=== PATIENT | female | born 1980 | race Asian ===

== ENCOUNTER → 2019-09-03 | Outpatient (CLI) | payer OTHER ==
[2019-09-04 06:17] LABS: RUBEOLA (MEASLES) IGG >300.0 AU/mL (Immune >16.4)
== END | disposition home or self-care (01) ==
LOC: MSR 10:38
PROVIDERS: ATTEND Internal Medicine
DX: Z02.1 Encounter for pre-employment examination (principal); R76.11 Nonspecific reaction to tuberculin skin test without active tuberculosis; J45.909 Unspecified asthma, uncomplicated
CPT/HCPCS: 86706; 86735; 86762; 86765; 86787

== ENCOUNTER → 2020-06-29 | Outpatient (CLI) | payer OTHER | END | disposition home or self-care (01) | LOC: LABPV 18:36 | PROVIDERS: ATTEND Emergency Medicine | DX: Z20.828 Contact with and (suspected) exposure to other viral communicable diseases (principal) | CPT/HCPCS: 87426; U0003 ==

== ENCOUNTER → 2020-07-06 | Outpatient (CLI) | payer OTHER | END | disposition home or self-care (01) | LOC: EMS 16:36 | DX: Z20.828 Contact with and (suspected) exposure to other viral communicable diseases (principal) | CPT/HCPCS: U0003-CS ==

== ENCOUNTER → 2022-11-09 | Outpatient (CLI) | payer OTHER ==
[2022-11-09 14:13] LABS: BASOPHILS % (AUTO) 0.6 % (0.0-2.0); EOSINOPHILS % (AUTO) 1.8 % (1.0-6.0); HEMATOCRIT 40.3 % (36-46); HEMOGLOBIN 13.3 g/dL (12.0-16.0); LYMPHOCYTES # (AUTO) 2.2 K/uL (1.0-4.8); LYMPHOCYTES % (AUTO) 40.6 % (22.0-44.0); MEAN CORPUSCULAR HEMOGLOBIN 31.9 pg (26.0-34.0); MEAN CORPUSCULAR HGB CONC 33.1 G/dL (31.0-37.0); MEAN CORPUSCULAR VOLUME 97 fL (80-100); MONOCYTES # (AUTO) 0.3 K/uL (0.1-1.0); MONOCYTES % (AUTO) 6.3 % (2.0-9.0); NEUTROPHILS # (AUTO) 2.7 K/uL (1.8-7.7); NEUTROPHILS % (AUTO) 50.7 % (40.0-70.0); PLATELET COUNT (AUTO) 266 K/uL (150-450); RED BLOOD CELL COUNT(AUTO) 4.18 MIL/uL (4.00-5.20)
[2022-11-09 14:26] LABS: APPEARANCE,URINE CLEAR (CLEAR); BILIRUBIN,URINE NEGATIVE (NEGATIVE); GLUCOSE, URINE (UA) NEGATIVE (NEGATIVE); KETONES,URINE NEGATIVE (NEGATIVE); LEUKOCYTE ESTERASE ,URINE NEGATIVE (NEGATIVE); NITRATE,URINE NEGATIVE (NEGATIVE); OCCULT BLOOD,URINE MODERATE (NEGATIVE); PROTEIN,URINE NEGATIVE (NEGATIVE); UROBILINOGEN,URINE <=1.0 mg/dL (<=1.0)
[2022-11-09 14:42] LABS: BACTERIA,URINE None Seen /HPF (None Seen); SQUAMOUS EPITHELIAL CELL,UR Few /LPF (None Seen); WBC,URINE None Seen /HPF (0-5)
[2022-11-09 14:45] LABS: HEMOGLOBIN A1C 5.7 % (3.8-5.6)
[2022-11-09 14:48] LABS: ALANINE AMINOTRANSFERASE 17 U/L (12-78); ALBUMIN 4.2 g/dL (3.4-5.0); ALKALINE PHOSPHATASE 57 U/L (46-116); ANION GAP 6 mmol/L (8-16); ASPARTATE AMINOTRANSFERASE 15 U/L (15-37); BILIRUBIN,TOTAL 0.3 mg/dL (0.1-1.0); CALCIUM, TOTAL 8.9 mg/dL (8.8-10.5); CARBON DIOXIDE 29 mmol/L (22-29); CHLORIDE 104 mmol/L (98-107); CHOLESTEROL 189 mg/dL (131-200); CREATININE 0.72 mg/dL (0.60-1.30); GLUCOSE,RANDOM 123 mg/dL (70-110); HDL CHOLESTEROL 63 mg/dL (40-60); LDL CHOL (CALC.) 105 mg/dL (0-130); SODIUM SERUM 139 mmol/L (136-145); TOTAL PROTEIN, SERUM 7.9 g/dL (6.4-8.2); TRIGLYCERIDES 107 mg/dL (15-150); UREA NITROGEN, BLOOD 12 mg/dL (7-18)
[2022-11-09 14:51] LABS: GLOMERULAR FILTR. RATE CALC > 60 mL/min (>60)
[2022-11-09 15:00] LABS: FREE T4 (FREE THYROXINE) 1.03 ng/dL (0.76-1.46); THYROID STIMULATING HORMONE 1.94 uIU/mL (0.36-3.74)
== END | disposition home or self-care (01) ==
LOC: LABMN 13:46
PROVIDERS: ATTEND Family Medicine
DX: Z00.00 Encounter for general adult medical examination without abnormal findings (principal)
CPT/HCPCS: 80053; 80061; 81001; 83036; 84439; 84443; 85025